=== PATIENT | male | born 2000 | race Two or more races ===

== ENCOUNTER 2020-09-03 16:07 | Emergency (ER) | payer SELFPAY ==
[~2020-09-03] VITALS: Ht 172.7 cm; Wt 65.0 kg
[2020-09-03 16:21] VITALS: BP 122/76
--- NOTE | 2020-09-03 16:54 | PHYS DOC ---
Past Medical History Past Medical History: No Pertinent History Past Surgical History: Other Additional Past Surgical Histo: Lower left leg Smoking Status: Never Smoker Alcohol Use: Rarely General Adult EDM: Chief Complaint: PSYCH EVALUATION HPI: HPI: Patient is a 20 year old male who is currently on no prescription medications presents with a chief complaint of hallucinations and insomnia and suicidal thoughts. Patient states since Saturday he has been hearing voices. He is unable to tell me what exactly and the voices are saying. Patient states started shortly after eating an edible. Patient states since Saturday he is unable to sleep. Prior to arrival patient had thoughts of hurting himself with a plan of drinking eyedrop solution. Review of Systems: Review of Systems: Review of systems: Constitutional symptoms- No fever, no chills. Eyes- No Discharge, No Visual Loss Respiratory symptoms- No shortness of breath, No wheezing, No Dyspnea on Exertion Cardiovascular Systems; No chest pain, No Palpitations, No syncope Gastrointestinal symptoms: NO abdominal pain, no nausea, no vomiting or diarrhea. Genitourinary symptoms: No dysuria. Musculoskeletal symptoms: No back pain No extremity pain. NEUROLOGICAL Symptoms: No headache, no generalized weakness; No focal Weakness Psych positive hallucination positive suicidal thoughts Heart Score: C/O Chest Pain: N/A Risk Factors: Risk Factors: DM, Current or recent (<one month) smoker, HTN, HLP, family history of CAD, obesity. Risk Scores: Score 0 - 3: 2.5% MACE over next 6 weeks - Discharge Home Score 4 - 6: 20.3% MACE over next 6 weeks - Admit for Clinical Observation Score 7 - 10: 72.7% MACE over next 6 weeks - Early Invasive Strategies Allergies: Allergies: Allergies Coded Allergies Type Severity Reaction Last Updated Verified No Known Drug Allergies 09/03/20 No Physical Exam: PE: General: alert, no acute distress. Skin: warm, dry and intact. Head:: Normocephalic, atraumatic. Neck: Trachea midline. Eyes: EOMI, Normal conjunctiva, No drainage CARDIOVASCULAR: Regular rate and rhythm RESPIRATORY: No respiratory distress Back: Full range of motion. MUSCULOSKELETAL: Full range of motion of bilateral upper and lower extremities. GASTROINTESTINAL: Abdomen soft without rebound or guarding. NEUROLOGICAL: Alert and noted to person, place and time. No neurological deficits observed Psychiatric: Cooperative. Normal judgment. Currently denies any suicidal thoughts or plans endorse the idea prior to arrival Current Patient Data: Vital Signs: Vital Signs Date Time Temp Pulse Resp B/P (MAP) Pulse Ox O2 Delivery O2 Flow Rate FiO2 09/03/20 16:21 98.3 74 16 122/76 (91) 98 Room Air 98.3 EKG: EKG: [] Radiology/Procedures: Radiology/Procedures: [] Course & Med Decision Making: Course & Med Decision Making Pertinent Labs and Imaging studies reviewed. (See chart for details) [] Patient was evaluated for chief complaint. Work-up consisted of laboratory analysis. Patient was evaluated by psychiatric assessment team. Patient will be referred to [facility]. I am comfortable with this plan. Patient will be discharged in car of family [facility] Disclaimer: Alina Disclaimer: This electronic medical record was generated, in whole or in part, using a voice recognition dictation system. Departure Departure Impression: Primary Impression: Hallucination Additional Impression: Suicidal thoughts Disposition: [address] [place] [address] ([facility]) Condition: STABLE Patient Instructions: Hallucinogens, Suicidal Feelings, How to Help Yourself TADEO PRAKASH I DO September 03, 2020 16:54
[2020-09-03 17:01] LABS: BASO # 0.1 x10^3/uL (0.0-0.2); BASO % 1 % (0-3); EOS % 0 % (0-3); HEMATOCRIT 47.8 % (39.0-53.0); HEMOGLOBIN 16.2 g/dL (13.0-17.5); LYMPH # 1.9 x10^3/uL (1.0-4.8); LYMPH % 19 % (24-48); MEAN CORPUSCULAR HEMOGLOBIN 31 pg (25-35); MEAN CORPUSCULAR HGB CONC 34 g/dL (31-37); MEAN CORPUSCULAR VOLUME 91 fL (79-100); MONO # 0.9 x10^3/uL (0.0-1.1); MONO % 9 % (0-9); NEUT # 7.1 x10^3/uL (1.8-7.7); NEUT % 71 % (31-73); PLATELET COUNT 284 x10^3/uL (140-400); RED BLOOD COUNT 5.25 x10^6/uL (4.30-5.70); RED CELL DISTRIBUTION WIDTH 12.8 % (11.5-14.5); WHITE BLOOD COUNT 9.9 x10^3/uL (4.0-11.0)
[2020-09-03 17:12] LABS: CALCIUM 9.1 mg/dL (8.5-10.1); CREATININE 0.8 mg/dL (0.7-1.3); POTASSIUM 3.5 mmol/L (3.5-5.1)
[2020-09-03 17:18] LABS: ALBUMIN/GLOBULIN RATIO 1.7 (1.0-1.7)
[2020-09-03 17:19] LABS: ACETAMIN < 2 mcg/ml (10-30); ETHANOL < 10 mg/dL (0-10); SALIC < 2.8 mg/dL (2.8-20.0)
[2020-09-03 17:30] LABS: BARBITURATES NEG (NEG); BENZODIAZEPINES NEG (NEG); CANNABINOIDS POS (NEG); COCAINE NEG (NEG); METHADONE NEG (NEG); OPIATES NEG (NEG); PHENCYCLIDINE NEG (NEG)
[2020-09-03 17:34] LABS: AMPHETAMINE/METHAMPHETAMINE NEG (NEG)
== END 2020-09-03 19:30 ==
LOC: ER 16:07
DX: R45.851 Suicidal ideations (principal); R44.3 Hallucinations, unspecified; G47.00 Insomnia, unspecified
CPT/HCPCS: 36415; 80053; 80307; 80329; 85025; 99285; G0480